=== PATIENT | female | born 1965 | race Caucasian/White ===

== ENCOUNTER 2016-05-15 12:04 | Inpatient (IN) | payer BC ==
[~2016-05-15] VITALS: Ht 172.7 cm; Wt 116.6 kg
[~2016-05-15 12:04] MED LIST: AMARYL4 MG PO; ATORVASTATIN CA20 MG PO; AUGMENTIN875 MG PO; CLEOCIN300 MG PO; CLINDAMYCIN HC150 MG PO; CLINDAMYCIN HC300 MG PO; COUMADIN10 MG PO; COUMADIN7.5 MG PO; GLIPIZIDE10 MG PO; HUMULIN 70100 UNIT/2 SC; HUMULIN N300 UNIT/3 SC; INVanz IV; Lovenox SC; METFORMIN HCL1000 M1 PO; Maxipime IV; NAPROSYN500 MG PO; NEURONTIN800 MG PO; NOVOLIN N100 UNITS/ SC; NOVOLOG PE100 UNITS/ SC; Neurontin PO; Percocet 5/325,Endoc PO; PriLOSEC OTC PO; TRAMADOL HCL50 MG PO; TRAZODONE HCL50 MG PO; VALIUM5 MG PO; Vicodin,Norco 5/325 PO; glipizide; metformin hcl; metoprolol
[2016-05-15 16:49] LABS: HEMATOCRIT 40.7 % (36.0-46.0); MCH 28.8 PG (29.0-34.0); MCHC 34.2 G/DL (30.0-36.0); MCV 84.3 FL (83-99); MEAN PLAT.VOLUME 9.7 uM^3 (9.5-12.4); PLATELET COUNT 242 K/uL (156-360); RBC DIS.WIDTH-CV 13.7 % (11.8-14.6); RBC DIS.WIDTH-SD 41.1 % (39-53); RED BLOOD COUNT 4.83 M/uL (3.80-5.20); WHITE BLOOD COUNT 8.5 K/uL (4.1-10.2)
[2016-05-15 16:57] LABS: CHLORIDE 103 mEq/L (99-109); POTASSIUM 4.6 mEq/L (3.7-5.4); PTT 37.7 (25-32); SODIUM 138 mEq/L (136-147)
[2016-05-15 16:58] LABS: INTER. NORMALIZED RATIO 2.7; PROTHROMBIN TIME 27.9 (9.2-11.2)
[2016-05-15 16:59] LABS: GLUCOSE 274 mg/dL (70-99)
[2016-05-15 17:00] LABS: ANION GAP 10 MEQ/L (2-14)
[2016-05-15 17:01] LABS: TOTAL BILIRUBIN 0.5 mg/dL (0.0-1.0)
[2016-05-15 17:02] LABS: ALKALINE PHOSPHATASE 159 IU/L (3-129)
[2016-05-15 17:03] LABS: GFR ESTIMATE (CALCULATED) > 59 mL/min/
[2016-05-15 17:04] LABS: UREA NITROGEN (BUN) 15 mg/dL (9-23)
[2016-05-15] MEDS ORDERED: COUMADIN2.5 MG PO (17:29)
[2016-05-15] MEDS ORDERED: HUMULIN N100 UNITS/ SC (17:33)
[2016-05-15 20:17] VITALS: BP 189/94
[2016-05-15 20:46] VITALS: BP 189/94
[2016-05-15 23:39] VITALS: BP 133/64
[2016-05-16 05:14] VITALS: BP 140/70
[2016-05-16 06:02] LABS: EOSINOPHIL (%) 3.3 % (0-5); EOSINOPHIL COUNT 0.2 K/uL (0-0.3); HEMATOCRIT 36.2 % (36.0-46.0); IMMATURE GRANULOCYTE (%) 0.3 % (0.0-0.7); LYMPHOCYTE COUNT 2.8 K/uL (1.0-2.8); MCH 28.7 PG (29.0-34.0); MCHC 33.7 G/DL (30.0-36.0); MCV 85.2 FL (83-99); MEAN PLAT.VOLUME 10.2 uM^3 (9.5-12.4); MONOCYTE (%) 6.1 % (3-12); MONOCYTE COUNT 0.4 K/uL (0-0.8); NEUTROPHIL (%) 47.2 % (45-76); NEUTROPHIL COUNT 3.1 K/uL (1.8-6.4); PLATELET COUNT 241 K/uL (156-360); RBC DIS.WIDTH-CV 13.8 % (11.8-14.6); RBC DIS.WIDTH-SD 42.7 % (39-53); RED BLOOD COUNT 4.25 M/uL (3.80-5.20); WHITE BLOOD COUNT 6.6 K/uL (4.1-10.2)
[2016-05-16 06:11] LABS: INTER. NORMALIZED RATIO 2.6; PROTHROMBIN TIME 26.8 (9.2-11.2)
[2016-05-16 06:27] LABS: ANION GAP 5 MEQ/L (2-14); CHLORIDE 105 MEQ/L (99-109); GFR ESTIMATE (CALCULATED) > 59 mL/min/; GLUCOSE 162 mg/dL (70-99); SAMPLE HEMOLYSIS CHECK 0; SAMPLE ICTERIC CHECK 0; SAMPLE LIPEMIA CHECK 0; SODIUM 137 MEQ/L (136-147); UREA NITROGEN (BUN) 15 mg/dL (9-23)
[2016-05-16 06:31] LABS: POTASSIUM 3.5 MEQ/L (3.7-5.4)
[2016-05-16 08:00] LABS: POINT-OF-CARE METER ID UU13113717
[2016-05-16 08:25] VITALS: BP 152/82
[2016-05-16 16:58] VITALS: BP 146/93
[2016-05-16 20:17] VITALS: BP 179/81
[2016-05-17 00:04] VITALS: BP 131/62
[2016-05-17 05:31] LABS: HEMATOCRIT 38.1 % (36.0-46.0); MCH 28.4 PG (29.0-34.0); MCHC 33.1 G/DL (30.0-36.0); MCV 85.8 FL (83-99); MEAN PLAT.VOLUME 9.6 uM^3 (9.5-12.4); PLATELET COUNT 197 K/uL (156-360); RBC DIS.WIDTH-CV 13.6 % (11.8-14.6); RBC DIS.WIDTH-SD 42.7 % (39-53); RED BLOOD COUNT 4.44 M/uL (3.80-5.20); WHITE BLOOD COUNT 7.5 K/uL (4.1-10.2)
[2016-05-17 05:38] LABS: INTER. NORMALIZED RATIO 2.6; PROTHROMBIN TIME 26.8 (9.2-11.2)
[2016-05-17 05:53] LABS: ANION GAP 9 MEQ/L (2-14); CHLORIDE 107 MEQ/L (99-109); GFR ESTIMATE (CALCULATED) > 59 mL/min/; GLUCOSE 121 mg/dL (70-99); POTASSIUM 3.6 MEQ/L (3.7-5.4); SAMPLE HEMOLYSIS CHECK 0; SAMPLE ICTERIC CHECK 0; SAMPLE LIPEMIA CHECK 0; SODIUM 140 MEQ/L (136-147); UREA NITROGEN (BUN) 11 mg/dL (9-23)
[2016-05-17 08:01] LABS: POINT-OF-CARE METER ID UU13113717
[2016-05-17 08:05] VITALS: BP 117/58
[2016-05-17 11:31] LABS: POINT-OF-CARE METER ID UU13113717
[2016-05-17 12:59] LABS: Estimated Average Glucose 295 mg/dL (70-123); HEMOGLOBIN A1c (GLYCOHEMOGLOB) 11.9 % HGB (Below 5.7)
[2016-05-17 16:08] VITALS: BP 160/80
[2016-05-17 18:18] LABS: POINT-OF-CARE METER ID UU13113675
[2016-05-17 20:00] VITALS: BP 174/83
[2016-05-17 22:13] VITALS: BP 163/77
[2016-05-17 22:18] LABS: POINT-OF-CARE METER ID UU13113717
[2016-05-18 00:23] VITALS: BP 123/58
[2016-05-18 04:08] VITALS: BP 148/70
[2016-05-18 05:45] LABS: HEMATOCRIT 36.3 % (36.0-46.0); MCH 28.8 PG (29.0-34.0); MCHC 33.3 G/DL (30.0-36.0); MCV 86.4 FL (83-99); MEAN PLAT.VOLUME 9.7 uM^3 (9.5-12.4); PLATELET COUNT 206 K/uL (156-360); RBC DIS.WIDTH-CV 13.7 % (11.8-14.6); RBC DIS.WIDTH-SD 42.9 % (39-53); WHITE BLOOD COUNT 7.4 K/uL (4.1-10.2)
[2016-05-18 06:14] LABS: INTER. NORMALIZED RATIO 1.7; PROTHROMBIN TIME 17.2 (9.2-11.2)
[2016-05-18 07:28] LABS: POINT-OF-CARE METER ID UU13113717
[2016-05-18 08:04] VITALS: BP 130/58
[2016-05-18 11:49] VITALS: BP 129/62
[2016-05-18 15:59] VITALS: BP 143/77
[2016-05-18 23:02] VITALS: BP 135/63
[2016-05-19 05:26] LABS: INTER. NORMALIZED RATIO 1.3; PROTHROMBIN TIME 13.1 (9.2-11.2)
[2016-05-19 08:02] LABS: POINT-OF-CARE METER ID UU13113717
[2016-05-19 08:30] VITALS: BP 160/80
[2016-05-19] MEDS ORDERED: CILOSTAZOL50 MG PO (11:23)
[2016-05-19] MEDS ORDERED: LOVENOX120 MG/0.8 SC (11:23)
[2016-05-19] MEDS ORDERED: LISINOPRIL10 MG PO (11:34)
[2016-05-19] MEDS ORDERED: HYDROCODON-ACE1 EAC7 PO (11:34)
[2016-05-19] MEDS ORDERED: BACTRIM,SEPT1 TABLET PO (11:45)
[2016-05-19 12:03] LABS: POINT-OF-CARE METER ID UU14188577
[2016-05-19 12:39] LABS: ANION GAP 8 MEQ/L (2-14); CHLORIDE 105 MEQ/L (99-109); GFR ESTIMATE (CALCULATED) > 59 mL/min/; GLUCOSE 138 mg/dL (70-99); POTASSIUM 4.2 MEQ/L (3.7-5.4); SAMPLE HEMOLYSIS CHECK 0; SAMPLE ICTERIC CHECK 0; SAMPLE LIPEMIA CHECK 0; SODIUM 138 MEQ/L (136-147); UREA NITROGEN (BUN) 8 mg/dL (9-23)
== END 2016-05-19 13:48 | disposition home health service (06) | DRG 617 ==
LOC: RME 12:04 → EME 12:04 → EDOF 18:30 → 3EAST 18:30
PROVIDERS: Family Medicine; Hospitalist; Internal Medicine; Nurse Practitioner Adult Health; Nurse Practitioner Family; Surgery
PROC: 0Y6V0Z0 Detachment at Right 4th Toe, Complete, Open Approach (ICD-10-PCS; principal; 2016-05-16)
DX: E11.69 Type 2 diabetes mellitus with other specified complication (principal); M86.671 Other chronic osteomyelitis, right ankle and foot; D68.59 Other primary thrombophilia; L03.031 Cellulitis of right toe; E87.6 Hypokalemia; E11.40 Type 2 diabetes mellitus with diabetic neuropathy, unspecified; E11.51 Type 2 diabetes mellitus with diabetic peripheral angiopathy without gangrene; I10 Essential (primary) hypertension; E78.5 Hyperlipidemia, unspecified; F41.9 Anxiety disorder, unspecified; E66.9 Obesity, unspecified; Z68.39 Body mass index [BMI] 39.0-39.9, adult; Z79.4 Long term (current) use of insulin; Z86.711 Personal history of pulmonary embolism; Z86.718 Personal history of other venous thrombosis and embolism; Z79.01 Long term (current) use of anticoagulants; Z87.891 Personal history of nicotine dependence; Z86.14 Personal history of Methicillin resistant Staphylococcus aureus infection
CPT/HCPCS: 73630; 73720; 80048; 80053; 80202; 82948; 83036; 83605; 85025; 85027; 85610; 85651; 85730; 87040; 88305; 88311; 93925; 99281; 99285; J0690; J0696; J1170; J1815; J2543; J3370; J3480; J7030; J7040; J7050; S0020

== ENCOUNTER → 2017-01-24 | Outpatient (CLI) | payer BC ==
[~2017-01-24] MED LIST changes: +BACTRIM,SEPT1 TABLET PO; +CILOSTAZOL50 MG PO; +COUMADIN2.5 MG PO; +GABAPENTIN600 MG PO; +HUMULIN N100 UNITS/ SC; +HYDROCODON-ACE1 EAC7 PO; +LISINOPRIL10 MG PO; +LOVENOX120 MG/0.8 SC
== END | disposition home or self-care (01) ==
LOC: AMB 10:34
PROC: 0HBEXZX Excision of Left Lower Arm Skin, External Approach, Diagnostic (ICD-10-PCS; principal; 2017-01-24)
DX: L57.0 Actinic keratosis (principal)
CPT/HCPCS: 88305

== ENCOUNTER 2017-04-12 14:32 | Inpatient (IN) | payer BC ==
[~2017-04-12] VITALS: Ht 172.7 cm; Wt 117.7 kg
[~2017-04-12 14:32] MED LIST changes: +GABAPENTIN300 MG PO; -GABAPENTIN600 MG PO
[2017-04-12 17:06] LABS: HEMATOCRIT 36.6 % (36.0-46.0); HEMOGLOBIN 12.3 G/DL (11.9-15.5); MCH 28.6 PG (29.0-34.0); MCHC 33.6 G/DL (30.0-36.0); MCV 85.1 FL (83-99); PLATELET COUNT 215 K/uL (156-360); RBC DIS.WIDTH-CV 13.5 % (11.8-14.6); WHITE BLOOD COUNT 10.2 K/uL (4.1-10.2)
[2017-04-12 17:22] LABS: CHLORIDE 93 mEq/L (99-109); POTASSIUM 4.2 mEq/L (3.7-5.4); SODIUM 130 mEq/L (136-147)
[2017-04-12 17:24] LABS: GLUCOSE 378 mg/dL (70-99)
[2017-04-12 17:28] LABS: CREATININE 1.2 mg/dL (0.6-1.3); GFR ESTIMATE (CALCULATED) 51 mL/min/
[2017-04-12 17:29] LABS: UREA NITROGEN (BUN) 31 mg/dL (9-23)
[2017-04-12 17:58] LABS: INTER. NORMALIZED RATIO 2.4
[2017-04-12] MEDS ORDERED: TRAMADOL HCL50 MG PO (18:08)
[2017-04-12] MEDS ORDERED: LISINOPRIL10 MG PO (18:08)
[2017-04-12] MEDS ORDERED: CILOSTAZOL100 MG PO (18:09)
[2017-04-12] MEDS ORDERED: METFORMIN HCL500 M1 PO (18:09)
[2017-04-12 23:09] VITALS: BP 134/73
[2017-04-13 04:34] VITALS: BP 146/64
[2017-04-13 08:11] VITALS: BP 154/72
[2017-04-13 10:59] LABS: BASOPHIL (%) 0.5 % (0-1); BASOPHIL COUNT 0.1 K/uL (0-0.1); EOSINOPHIL (%) 0.3 % (0-5); HEMATOCRIT 33.1 % (36.0-46.0); IMMATURE GRANULOCYTE (%) 1.4 % (0.0-0.7); LYMPHOCYTE COUNT 1.3 K/uL (1.0-2.8); MCH 28.2 PG (29.0-34.0); MCHC 33.2 G/DL (30.0-36.0); MCV 84.9 FL (83-99); MONOCYTE (%) 11.6 % (3-12); MONOCYTE COUNT 1.2 K/uL (0-0.8); NEUTROPHIL (%) 73.2 % (45-76); NEUTROPHIL COUNT 7.4 K/uL (1.8-6.4); PLATELET COUNT 236 K/uL (156-360); RBC DIS.WIDTH-CV 13.6 % (11.8-14.6); RBC DIS.WIDTH-SD 42.1 % (39-53); WHITE BLOOD COUNT 10.1 K/uL (4.1-10.2)
[2017-04-13 11:06] LABS: CHLORIDE 99 MEQ/L (99-109); MAGNESIUM 1.8 mg/dl (1.3-2.7); POTASSIUM 3.5 MEQ/L (3.7-5.4); SODIUM 134 MEQ/L (136-147)
[2017-04-13 11:11] LABS: GFR ESTIMATE (CALCULATED) > 59 mL/min/; GLUCOSE 266 mg/dL (70-99); UREA NITROGEN (BUN) 20 mg/dL (9-23)
[2017-04-13 11:12] LABS: INTER. NORMALIZED RATIO 3.8
[2017-04-13 11:13] LABS: CREATININE 0.7 MG/DL (0.6-1.3)
[2017-04-13 17:14] VITALS: BP 136/82
[2017-04-13 19:30] VITALS: BP 131/74
[2017-04-13 23:23] VITALS: BP 136/63
[2017-04-14 05:28] LABS: HEMATOCRIT 30.5 % (36.0-46.0); MCH 28.5 PG (29.0-34.0); MCHC 32.8 G/DL (30.0-36.0); MCV 86.9 FL (83-99); PLATELET COUNT 221 K/uL (156-360); RBC DIS.WIDTH-CV 13.8 % (11.8-14.6); RBC DIS.WIDTH-SD 44.1 % (39-53); RED BLOOD COUNT 3.51 M/uL (3.80-5.20); WHITE BLOOD COUNT 12.1 K/uL (4.1-10.2)
[2017-04-14 05:30] LABS: INTER. NORMALIZED RATIO 3.6
[2017-04-14 05:33] LABS: PTT 39.3 SEC (25-37)
[2017-04-14 06:07] LABS: CHLORIDE 101 MEQ/L (99-109); CREATININE 0.7 MG/DL (0.6-1.3); GFR ESTIMATE (CALCULATED) > 59 mL/min/; GLUCOSE 182 mg/dL (70-99); POTASSIUM 3.3 MEQ/L (3.7-5.4); SODIUM 136 MEQ/L (136-147); UREA NITROGEN (BUN) 16 mg/dL (9-23)
[2017-04-14 08:13] VITALS: BP 149/82
[2017-04-14 15:38] VITALS: BP 137/63
[2017-04-14 23:29] VITALS: BP 126/67
[2017-04-15 05:55] LABS: INTER. NORMALIZED RATIO 3.6
[2017-04-15 08:07] VITALS: BP 129/72
[2017-04-15 17:44] VITALS: BP 143/79
[2017-04-15 23:47] VITALS: BP 144/65
[2017-04-16 05:59] LABS: HEMATOCRIT 28.5 % (36.0-46.0); MCHC 31.6 G/DL (30.0-36.0); MCV 88.8 FL (83-99); RBC DIS.WIDTH-CV 14.3 % (11.8-14.6); RBC DIS.WIDTH-SD 46.5 % (39-53); RED BLOOD COUNT 3.21 M/uL (3.80-5.20); WHITE BLOOD COUNT 11.2 K/uL (4.1-10.2)
[2017-04-16 06:02] LABS: PLATELET COUNT 292 K/uL (156-360)
[2017-04-16 06:33] LABS: CHLORIDE 104 MEQ/L (99-109); CREATININE 0.8 MG/DL (0.6-1.3); GFR ESTIMATE (CALCULATED) > 59 mL/min/; GLUCOSE 57 mg/dL (70-99); POTASSIUM 3.1 MEQ/L (3.7-5.4); SODIUM 139 MEQ/L (136-147); UREA NITROGEN (BUN) 11 mg/dL (9-23)
[2017-04-16 06:42] LABS: INTER. NORMALIZED RATIO 2.8
[2017-04-16 08:04] VITALS: BP 127/69
[2017-04-16 16:10] VITALS: BP 137/69
[2017-04-16 23:17] VITALS: BP 141/80
[2017-04-17 06:28] LABS: INTER. NORMALIZED RATIO 2.1
[2017-04-17 07:00] LABS: HEMATOCRIT 26.9 % (36.0-46.0); HEMOGLOBIN 8.5 G/DL (11.9-15.5); MCH 28.1 PG (29.0-34.0); MCHC 31.6 G/DL (30.0-36.0); MCV 89.1 FL (83-99); PLATELET COUNT 337 K/uL (156-360); RBC DIS.WIDTH-CV 14.4 % (11.8-14.6); RED BLOOD COUNT 3.02 M/uL (3.80-5.20)
[2017-04-17 07:47] VITALS: BP 129/73
[2017-04-17 14:50] VITALS: BP 147/79
[2017-04-17 23:34] VITALS: BP 151/73
[2017-04-18 07:34] VITALS: BP 129/64
[2017-04-18 08:43] LABS: INTER. NORMALIZED RATIO 1.7
[2017-04-18] MEDS ORDERED: CEFADROXIL1 GM PO (14:03)
== END 2017-04-18 15:54 | disposition home or self-care (01) | DRG 854 ==
LOC: EME 14:32 → EDOF 17:49 → 3EAST 17:49 → ENRESERV 18:00 → 3EAST 22:45
PROVIDERS: Physician Assistant; Surgery
PROC: 0Y6P0Z1 Detachment at Right 1st Toe, High, Open Approach (ICD-10-PCS; principal; 2017-04-13)
DX: R78.81 Bacteremia (principal); E11.52 Type 2 diabetes mellitus with diabetic peripheral angiopathy with gangrene; M86.171 Other acute osteomyelitis, right ankle and foot; L02.611 Cutaneous abscess of right foot; D68.59 Other primary thrombophilia; L97.514 Non-pressure chronic ulcer of other part of right foot with necrosis of bone; E11.69 Type 2 diabetes mellitus with other specified complication; E11.65 Type 2 diabetes mellitus with hyperglycemia; E11.42 Type 2 diabetes mellitus with diabetic polyneuropathy; E11.621 Type 2 diabetes mellitus with foot ulcer; I10 Essential (primary) hypertension; K21.9 Gastro-esophageal reflux disease without esophagitis; F41.9 Anxiety disorder, unspecified; G89.29 Other chronic pain; B95.61 Methicillin susceptible Staphylococcus aureus infection as the cause of diseases classified elsewhere; E78.5 Hyperlipidemia, unspecified; Z79.4 Long term (current) use of insulin; Z86.711 Personal history of pulmonary embolism; Z86.718 Personal history of other venous thrombosis and embolism; Z87.11 Personal history of peptic ulcer disease; Z87.891 Personal history of nicotine dependence; Z89.421 Acquired absence of other right toe(s); Z86.72 Personal history of thrombophlebitis; Z90.49 Acquired absence of other specified parts of digestive tract; Z82.49 Family history of ischemic heart disease and other diseases of the circulatory system; Z83.3 Family history of diabetes mellitus
CPT/HCPCS: 80048; 82948; 83605; 83735; 84100; 85025; 85027; 85610; 85730; 87040; 87070; 87075; 87076; 87077; 87147; 87185; 87186; 87205; 87801; 88305; 88311; 99281; 99285; J0696; J1815; J2250; J3010; J3370; J7030; J7050; S0032

== ENCOUNTER 2017-05-21 13:44 | Day surgery (SDC) | payer BC ==
[~2017-05-21] VITALS: Ht 172.7 cm; Wt 113.4 kg
[~2017-05-21 13:44] MED LIST changes: +CEFADROXIL1 GM PO; +CILOSTAZOL100 MG PO; +CIPRO500 MG PO; +LISINOPRIL20 MG PO; +METFORMIN HCL500 M1 PO; +OMEPRAZOLE40 M1 PO
[2017-05-21 14:13] VITALS: BP 123/71
[2017-05-21 14:45] LABS: HEMATOCRIT 34.7 % (36.0-46.0); HEMOGLOBIN 11.2 G/DL (11.9-15.5); MCH 27.9 PG (29.0-34.0); MCHC 32.3 G/DL (30.0-36.0); MCV 86.3 FL (83-99); PLATELET COUNT 324 K/uL (156-360); RBC DIS.WIDTH-CV 14.3 % (11.8-14.6); RBC DIS.WIDTH-SD 45.1 % (39-53); RED BLOOD COUNT 4.02 M/uL (3.80-5.20); WHITE BLOOD COUNT 10.2 K/uL (4.1-10.2)
[2017-05-21 14:59] LABS: INTER. NORMALIZED RATIO 5.3
[2017-05-21 16:55] LABS: CHLORIDE 100 MEQ/L (99-109); POTASSIUM 4.3 MEQ/L (3.7-5.4); SODIUM 137 MEQ/L (136-147)
[2017-05-21 17:01] LABS: CREATININE 0.8 MG/DL (0.6-1.3); GFR ESTIMATE (CALCULATED) > 59 mL/min/; GLUCOSE 164 mg/dL (70-99); UREA NITROGEN (BUN) 23 mg/dL (9-23)
[2017-05-21 20:21] VITALS: BP 125/76
[2017-05-22 00:16] VITALS: BP 109/57
[2017-05-22 04:22] VITALS: BP 102/55
[2017-05-22 06:04] LABS: HEMATOCRIT 30.9 % (36.0-46.0); MCH 28.6 PG (29.0-34.0); MCHC 32.4 G/DL (30.0-36.0); MCV 88.3 FL (83-99); PLATELET COUNT 267 K/uL (156-360); RBC DIS.WIDTH-CV 14.6 % (11.8-14.6); RBC DIS.WIDTH-SD 46.6 % (39-53); WHITE BLOOD COUNT 9.1 K/uL (4.1-10.2)
[2017-05-22 06:09] LABS: INTER. NORMALIZED RATIO 2.2; PTT 35.2 SEC (25-37)
[2017-05-22 08:03] VITALS: BP 120/68
[2017-05-22 11:46] VITALS: BP 112/57
== END 2017-05-22 15:49 | disposition home or self-care (01) ==
LOC: SDC 13:44 → 2SOUTH 18:38 → 2EAST 18:38 → ENRESERV 18:39 → 2EAST 19:54 → ENPENDDIS 05-22 → 2EAST 05-22 15:49
PROVIDERS: Surgery
PROC: 0Y6R0Z1 Detachment at Right 2nd Toe, High, Open Approach (ICD-10-PCS; principal; 2017-05-21)
DX: E11.69 Type 2 diabetes mellitus with other specified complication (principal); M86.171 Other acute osteomyelitis, right ankle and foot; I10 Essential (primary) hypertension; K21.9 Gastro-esophageal reflux disease without esophagitis; D64.9 Anemia, unspecified; Z79.4 Long term (current) use of insulin; Z87.891 Personal history of nicotine dependence; Z86.72 Personal history of thrombophlebitis
CPT/HCPCS: 80048; 82948; 85027; 85610; 85730; 87641; 88305; 88311; 93005; 93971; C1894; G0378; J0690; J1815; J2250; J2405; J3010; J3430; J7050; J7120; S0020

== ENCOUNTER → 2017-05-24 | Outpatient (CLI) | payer BC | END | disposition home or self-care (01) | LOC: PICC 14:45 | DX: Z45.2 Encounter for adjustment and management of vascular access device (principal) ==

== ENCOUNTER 2017-07-13 14:49 | Day surgery (SDC) | payer BC ==
[~2017-07-13] VITALS: Ht 152.4 cm; Wt 120.5 kg
[2017-07-13 00:21] VITALS: BP 117/69
[2017-07-13 15:41] LABS: INTER. NORMALIZED RATIO 2.7
[2017-07-13] MEDS ORDERED: DOXYCYCLINE HY100 M3 PO (15:41)
[2017-07-13 15:45] VITALS: BP 105/56
[2017-07-13 15:47] LABS: CHLORIDE 105 MEQ/L (99-109); CREATININE 0.7 MG/DL (0.6-1.3); GFR ESTIMATE (CALCULATED) > 59 mL/min/; GLUCOSE 71 mg/dL (70-99); POTASSIUM 3.6 MEQ/L (3.7-5.4); SODIUM 140 MEQ/L (136-147); UREA NITROGEN (BUN) 20 mg/dL (9-23)
[2017-07-13] MEDS ORDERED: NORCO 5/3251 TABLET PO (21:36)
[2017-07-13] MEDS ORDERED: AUGMENTIN875 MG PO (21:36)
[2017-07-13 22:21] VITALS: BP 126/72
[2017-07-14 03:20] VITALS: BP 135/77
[2017-07-14 07:03] VITALS: BP 98/57
[2017-07-14 10:50] VITALS: BP 102/65
[2017-07-14 12:00] LABS: INTER. NORMALIZED RATIO 2.6
[2017-07-14 15:37] VITALS: BP 127/73
== END 2017-07-14 16:48 | disposition home or self-care (01) ==
LOC: SDC 14:49 → 2SOUTH 21:36 → ENRESERV 21:37 → 2EASTP 22:11
PROVIDERS: Surgery
PROC: 0Y6T0Z1 Detachment at Right 3rd Toe, High, Open Approach (ICD-10-PCS; principal; 2017-07-13)
DX: M86.171 Other acute osteomyelitis, right ankle and foot (principal); E11.69 Type 2 diabetes mellitus with other specified complication; Z89.411 Acquired absence of right great toe; Z89.421 Acquired absence of other right toe(s); I80.212 Phlebitis and thrombophlebitis of left iliac vein; D68.59 Other primary thrombophilia; Z79.4 Long term (current) use of insulin; I10 Essential (primary) hypertension; K21.9 Gastro-esophageal reflux disease without esophagitis; K25.9 Gastric ulcer, unspecified as acute or chronic, without hemorrhage or perforation; Z79.01 Long term (current) use of anticoagulants; Z82.49 Family history of ischemic heart disease and other diseases of the circulatory system; Z83.3 Family history of diabetes mellitus
CPT/HCPCS: 80048; 82948; 85610; 87641; 88305; 88311; 93005; G0378; J0690; J0696; J1815; J2250; J7120; S0020

== ENCOUNTER 2017-08-01 13:56 | Inpatient (IN) | payer BC ==
[~2017-08-01] VITALS: Ht 172.7 cm; Wt 129.2 kg
[~2017-08-01 13:56] MED LIST changes: +DOXYCYCLINE HY100 M3 PO; +NORCO 5/3251 TABLET PO
[2017-08-01 14:39] LABS: HEMATOCRIT 34.2 % (36.0-46.0); HEMOGLOBIN 10.9 G/DL (11.9-15.5); MCH 26.8 PG (29.0-34.0); MCHC 31.9 G/DL (30.0-36.0); MCV 84.2 FL (83-99); PLATELET COUNT 242 K/uL (156-360); RBC DIS.WIDTH-CV 14.8 % (11.8-14.6); RBC DIS.WIDTH-SD 45.5 % (39-53); RED BLOOD COUNT 4.06 M/uL (3.80-5.20); WHITE BLOOD COUNT 6.7 K/uL (4.1-10.2)
[2017-08-01 14:50] LABS: CHLORIDE 109 mEq/L (99-109); POTASSIUM 3.8 mEq/L (3.7-5.4); SODIUM 142 mEq/L (136-147)
[2017-08-01 14:51] LABS: GLUCOSE 172 mg/dL (70-99)
[2017-08-01 14:55] LABS: CREATININE 0.8 mg/dL (0.6-1.3); GFR ESTIMATE (CALCULATED) > 59 mL/min/
[2017-08-01 14:56] LABS: UREA NITROGEN (BUN) 16 mg/dL (9-23)
[2017-08-01 16:33] LABS: D-DIMER ELISA < 150.00 ng/mLDDU (<230)
[2017-08-01 16:57] LABS: TROP-I INTERPRETATION NEGATIVE; TROPONIN-I 0.02 ng/mL (0.0-0.30)
[2017-08-01 19:11] LABS: INTER. NORMALIZED RATIO 2.2
[2017-08-01 19:18] LABS: APPEARANCE CLEAR ((CLEAR)); BILIRUBIN NEGATIVE; BLOOD SMALL; COLOR YELLOW ((YELLOW)); GLUCOSE (STRIP) 50; KETONES NEGATIVE; LEUKOCYTES NEGATIVE; NITRITE NEGATIVE; PROTEIN (STRIP) 100; SPECIFIC GRAVITY 1.017 (1.000-1.030); UROBILINOGEN 0.2 MG/DL (0.2-1.0)
[2017-08-01 20:03] LABS: BACTERIA NONE SEEN /HPF; EPITHELIAL CELLS RARE /HPF; MUCUS NONE SEEN /LPF; RED BLOOD CELLS 0-5 /HPF (0-5); UCUL ADDED? NO; WHITE BLOOD CELLS 0-5 /HPF (0-5)
[2017-08-01 22:15] VITALS: BP 149/86
[2017-08-02 01:16] LABS: TROP-I INTERPRETATION NEGATIVE; TROPONIN-I 0.03 ng/mL (0.0-0.30)
[2017-08-02 05:00] VITALS: BP 128/57
[2017-08-02 05:52] LABS: HEMATOCRIT 36.7 % (36.0-46.0); HEMOGLOBIN 11.3 G/DL (11.9-15.5); MCH 26.1 PG (29.0-34.0); MCHC 30.8 G/DL (30.0-36.0); MCV 84.8 FL (83-99); PLATELET COUNT 227 K/uL (156-360); RBC DIS.WIDTH-CV 14.8 % (11.8-14.6); RBC DIS.WIDTH-SD 45.6 % (39-53); RED BLOOD COUNT 4.33 M/uL (3.80-5.20); WHITE BLOOD COUNT 7.5 K/uL (4.1-10.2)
[2017-08-02 06:12] LABS: TROP-I INTERPRETATION NEGATIVE; TROPONIN-I 0.02 ng/mL (0.0-0.30)
[2017-08-02 06:33] LABS: CHLORIDE 106 MEQ/L (99-109); CREATININE 0.6 MG/DL (0.6-1.3); GFR ESTIMATE (CALCULATED) > 59 mL/min/; POTASSIUM 3.7 MEQ/L (3.7-5.4); SODIUM 142 MEQ/L (136-147); UREA NITROGEN (BUN) 16 mg/dL (9-23)
[2017-08-02 06:35] LABS: GLUCOSE 52 mg/dL (70-99)
[2017-08-02 09:00] VITALS: BP 140/80
[2017-08-02 12:16] VITALS: BP 134/87
[2017-08-02 16:40] VITALS: BP 157/82
[2017-08-02 21:10] VITALS: BP 136/85
[2017-08-03 02:47] VITALS: BP 132/81
[2017-08-03 07:20] LABS: CHLORIDE 104 MEQ/L (99-109); CREATININE 0.7 MG/DL (0.6-1.3); GFR ESTIMATE (CALCULATED) > 59 mL/min/; GLUCOSE 46 mg/dL (70-99); SODIUM 140 MEQ/L (136-147); UREA NITROGEN (BUN) 14 mg/dL (9-23)
[2017-08-03 07:21] LABS: POTASSIUM 2.9 MEQ/L (3.7-5.4)
[2017-08-03 08:27] VITALS: BP 133/80
[2017-08-03 12:00] VITALS: BP 135/69
[2017-08-03 16:35] VITALS: BP 130/86
[2017-08-03 19:00] VITALS: BP 126/76
[2017-08-03 23:09] VITALS: BP 132/80
[2017-08-04 03:08] VITALS: BP 128/72
[2017-08-04 06:16] LABS: CHLORIDE 101 MEQ/L (99-109); CREATININE 0.8 MG/DL (0.6-1.3); GFR ESTIMATE (CALCULATED) > 59 mL/min/; GLUCOSE 65 mg/dL (70-99); POTASSIUM 3.3 MEQ/L (3.7-5.4); SODIUM 139 MEQ/L (136-147); UREA NITROGEN (BUN) 15 mg/dL (9-23)
[2017-08-04 09:06] VITALS: BP 104/55
[2017-08-04 12:02] VITALS: BP 167/80
[2017-08-04 14:55] VITALS: BP 140/84
[2017-08-04 19:37] VITALS: BP 140/84
[2017-08-04 23:00] VITALS: BP 117/55
[2017-08-05 03:38] VITALS: BP 117/61
[2017-08-05 06:13] LABS: INTER. NORMALIZED RATIO 1.9
[2017-08-05 06:32] LABS: CHLORIDE 101 MEQ/L (99-109); CREATININE 0.8 MG/DL (0.6-1.3); GFR ESTIMATE (CALCULATED) > 59 mL/min/; GLUCOSE 62 mg/dL (70-99); POTASSIUM 3.7 MEQ/L (3.7-5.4); SODIUM 141 MEQ/L (136-147); UREA NITROGEN (BUN) 18 mg/dL (9-23)
[2017-08-05 07:35] VITALS: BP 124/70
[2017-08-05 07:55] VITALS: BP 124/84
[2017-08-05] MEDS ORDERED: FUROSEMIDE40 MG PO (10:36)
[2017-08-05] MEDS ORDERED: LOPRESSOR25 MG PO (10:36)
[2017-08-05] MEDS ORDERED: ASPIR-LOW81 MG PO (10:36)
[2017-08-05] MEDS ORDERED: NOVOLIN N100 UNITS/ SC (10:36)
[2017-08-05] MEDS ORDERED: K-DUR20 MEQ PO (10:36)
[2017-08-05 13:04] VITALS: BP 101/67
== END 2017-08-05 14:47 | disposition home or self-care (01) | DRG 175 ==
LOC: RME 13:56 → EME 13:56 → EDOF 19:05 → 4EAST 19:05 → ENRESERV 19:08 → 4EAST 22:00 → ENRESERV 08-04 08:56 → 5SOUTH 08-04 14:51 → ENPENDDIS 08-05 14:43 → 5SOUTH 08-05 14:47
PROVIDERS: Hospitalist; Internal Medicine Cardiovascular Disease; Physician Assistant Medical
DX: I26.99 Other pulmonary embolism without acute cor pulmonale (principal); I11.0 Hypertensive heart disease with heart failure; I50.82 Biventricular heart failure; I50.21 Acute systolic (congestive) heart failure; D68.51 Activated protein C resistance; G47.33 Obstructive sleep apnea (adult) (pediatric); J98.4 Other disorders of lung; E11.40 Type 2 diabetes mellitus with diabetic neuropathy, unspecified; E11.51 Type 2 diabetes mellitus with diabetic peripheral angiopathy without gangrene; E66.01 Morbid (severe) obesity due to excess calories; Z68.41 Body mass index [BMI] 40.0-44.9, adult; E78.5 Hyperlipidemia, unspecified; K21.9 Gastro-esophageal reflux disease without esophagitis; D64.9 Anemia, unspecified; G89.29 Other chronic pain; M79.606 Pain in leg, unspecified; Z79.01 Long term (current) use of anticoagulants; Z79.4 Long term (current) use of insulin; Z82.49 Family history of ischemic heart disease and other diseases of the circulatory system; Z83.3 Family history of diabetes mellitus; Z86.72 Personal history of thrombophlebitis; Z87.891 Personal history of nicotine dependence; Z89.421 Acquired absence of other right toe(s)
CPT/HCPCS: 71046; 71275; 80048; 81003; 82948; 83880; 84132 91; 84484; 85027; 85379; 85610; 85730; 93005; 93306; 93970; 94060; 94640; 94726; 94729; 99281; 99285; J1815